=== PATIENT | female | born 1975 | race Caucasian/White ===

== ENCOUNTER → 2017-03-14 | Outpatient (REF) | payer OTHER | LOC: M LAB REF 10:44 | PROVIDERS: ATTEND Physician Assistant | DX: J02.9 Acute pharyngitis, unspecified (principal) ==

== ENCOUNTER → 2018-02-25 | Outpatient (CLI) | payer BC, OTHER ==
[2018-02-25 13:05] LABS: PROGESTERONE 46.49 NG/ML
[2018-02-25 13:06] LABS: ESTRADIOL 262.5 PG/ML
== END ==
LOC: M LAB 10:36
DX: E28.9 Ovarian dysfunction, unspecified (principal)
CPT/HCPCS: 84443

== ENCOUNTER → 2018-05-28 | Outpatient (CLI) | payer BC, OTHER ==
--- NOTE | 2018-05-28 16:00 | REP ---
Transvaginal pelvic sonography: History: Infertility study. Follicle exam. Findings: Uterine dimensions are normal at 7.6 x 4.2 x 4.5 cm. Endometrial echo 0.4 cm section. No focal uterine mass is seen. No free fluid is noted. Overall dimensions today of the right ovary are 3.1 x 2.2 x 1.8 cm. There is a 16 x 16 mm follicle in the right ovary and there are four follicles ranging in size from 0.4-0.6 cm. The left ovary measures 3.40 1.5 x 1.6 cm. There are no follicles over a centimeter in the left ovary. There are three follicles each measuring 0.5 cm in greatest diameter in the left ovary. Impression: Follicle study as above. Electronically Signed by jC Flores MD 05/28/2018 03:51 P
[2018-05-28 16:25] LABS: HCG, SERUM QUANTITATIVE < 1.0 MIU/ML
[2018-05-28 16:26] LABS: ESTRADIOL 32.7 PG/ML; LUTEINIZING HORMONE 6.1 mIU/mL; PROGESTERONE 0.44 NG/ML
[2018-05-28 16:27] LABS: FOLLICLE STIMULATING HORMONE 12.6 mIU/mL
== END ==
LOC: M RAD 14:43
PROVIDERS: ATTEND Obstetrics & Gynecology Reproductive Endocrinology
DX: E28.9 Ovarian dysfunction, unspecified (principal)

== ENCOUNTER → 2018-06-04 | Outpatient (CLI) | payer BC, OTHER ==
--- NOTE | 2018-06-04 16:10 | REP ---
TRANSVAGINAL PELVIC ULTRASOUND FOLLICLE STUDY: Transvaginal pelvic ultrasound was performed. The uterus is retroverted. It measures 8.5 x 4.7 x 5.2 cm. Endometrial thickness is 10 mm. There is trace cervical fluid. There is trace free fluid in the cul-de-sac. Right ovary measures 2.5 x 1.6 x 2.4 cm. Septated follicle in the right ovary measures 1 cm in diameter. There is another 4 mm follicle in the right ovary. Left ovary measures 3.0 x 1.4 x 1.6 cm. There are 2 follicle in the left ovary measuring 4 and 6 mm. Electronically Signed by Torres Rose MD 06/04/2018 04:16 P
[2018-06-04 16:56] LABS: HCG, SERUM QUANTITATIVE < 1.0 MIU/ML
[2018-06-04 16:58] LABS: ESTRADIOL 266.9 PG/ML; LUTEINIZING HORMONE 25.2 mIU/mL; PROGESTERONE 0.31 NG/ML
[2018-06-04 16:59] LABS: FOLLICLE STIMULATING HORMONE 17.2 mIU/mL
== END ==
LOC: M RAD 15:05
PROVIDERS: ATTEND Obstetrics & Gynecology Reproductive Endocrinology
DX: E28.9 Ovarian dysfunction, unspecified (principal); N83.01 Follicular cyst of right ovary; N83.02 Follicular cyst of left ovary

== ENCOUNTER → 2018-06-14 | Outpatient (CLI) | payer BC, OTHER ==
[2018-06-14 12:42] LABS: THYROID STIMULATING HORMONE 3.98 uIU/ML (0.358-3.740)
[2018-06-14 12:44] LABS: PROGESTERONE 28.39 NG/ML
== END ==
LOC: M LAB 11:41
PROVIDERS: ATTEND Obstetrics & Gynecology Reproductive Endocrinology
DX: E28.9 Ovarian dysfunction, unspecified (principal)

== ENCOUNTER → 2018-06-21 | Outpatient (CLI) | payer BC, OTHER ==
[2018-06-21 12:16] LABS: ESTRADIOL 378.4 PG/ML; PROGESTERONE 33.89 NG/ML; THYROID STIMULATING HORMONE 0.316 uIU/ML (0.358-3.740)
== END ==
LOC: M LAB 11:06
PROVIDERS: ATTEND Obstetrics & Gynecology Reproductive Endocrinology
DX: Z32.01 Encounter for pregnancy test, result positive (principal)